=== PATIENT | female | born 1970 | race Caucasian/White ===

== ENCOUNTER → 2016-12-27 | Outpatient (CLI) | payer OTHER | LOC: US 14:50 | DX: R10.9 Unspecified abdominal pain (principal) ==

== ENCOUNTER 2017-04-28 10:30 | Emergency (ER) | payer MEDICARE ==
[2017-04-28 11:47] LABS: HEMOGLOBIN 17.1 gm/dl (12.3-15.3); RED BLOOD COUNT 5.12 M/UL (4.00-5.10); WHITE BLOOD COUNT 9.7 K/UL (4.5-11.0)
[2017-04-28 12:05] LABS: BUN/CREATININE RATIO 7 (0-10)
== END 2017-04-28 15:13 | disposition home or self-care (01) ==
LOC: ER1 10:30
PROVIDERS: Emergency Medicine
DX: R10.11 Right upper quadrant pain (principal); R19.7 Diarrhea, unspecified; R63.0 Anorexia; F17.210 Nicotine dependence, cigarettes, uncomplicated; Z90.49 Acquired absence of other specified parts of digestive tract
CPT/HCPCS: 36415; 80053; 81001; 83605; 83690; 84484; 84703; 85025; 85610; 85730; 93005; 96361; 96374; 96375; 99284; J2405; J7030; J7050; Q9962

== ENCOUNTER → 2021-01-31 | Outpatient (CLI) | payer OTHER ==
[~2021-01-31] MED LIST: BENTYL 10MG CAP10 MG PO; CELEBREX200 MG PO; COLACE100 MG PO; CYMBALTA60 MG PO; DITROPAN 5 MG TA5 MG PO; ECOTRIN81 MG PO; FLOMAX0.4 MG PO; HYDROCODON-ACE1 EAC6 PO; HYDROXYZINE PAM25 MG PO; KLONOPIN TAB 00.5 MG PO; KLONOPIN0.5 MG PO; LOPRESSOR 25 MG25 MG PO; MACROBID 100 M100 MG PO; METOPROLOL SUCC25 MG PO; NEURONTIN 400400 MG PO; NEURONTIN800 MG PO; NORCO 10-325 T1 EACH PO; OXYBUTYNIN CHLO15 MG PO; PEPCID20 MG PO; PERCOCET 5-3251 EACH PO; PLAVIX 75 MG TA75 MG PO; PLAVIX75 MG PO; PRAVACHOL40 MG PO; PROAIR HFA8.5 GM INH; PROTONIX 20 MG20 MG PO; RESTORIL30 MG PO; SYMBICORT 160-1 INHA INH; SYMBICORT 80-41 INHA INH; TEMAZEPAM30 MG PO; TORADOL 10 MG T10 MG PO; VENTOLIN HFA 66.7 GM INH; XYLOCAINE 5% OI35 GM TOP; ZOFRAN4 MG PO
== END ==
LOC: CT 07:11
DX: R10.13 Epigastric pain (principal); I10 Essential (primary) hypertension; R93.5 Abnormal findings on diagnostic imaging of other abdominal regions, including retroperitoneum
CPT/HCPCS: 36415; 74160; 82565; Q9967

== ENCOUNTER → 2021-02-17 | Outpatient (CLI) | payer OTHER | LOC: HEART 5 09:20 → ECHO 02-22 13:00 | DX: I25.10 Atherosclerotic heart disease of native coronary artery without angina pectoris (principal); I08.1 Rheumatic disorders of both mitral and tricuspid valves; I27.20 Pulmonary hypertension, unspecified; Z95.5 Presence of coronary angioplasty implant and graft | CPT/HCPCS: 93306 ==

== ENCOUNTER 2021-07-25 14:40 | Inpatient (IN) | payer OTHER ==
[~2021-07-25] VITALS: Ht 157.5 cm; Wt 68.6 kg
[2021-07-25 16:23] LABS: HEMOGLOBIN 15.3 gm/dl (12.3-15.3); RED BLOOD COUNT 4.62 M/UL (4.00-5.10); WHITE BLOOD COUNT 8.7 K/UL (4.5-11.0)
[2021-07-25 16:49] LABS: BUN/CREATININE RATIO 18 (0-10)
[2021-07-25] MEDS ORDERED: PROVENTIL HFA6.7 GM INH (22:24)
[2021-07-25] MEDS ORDERED: PEPCID40 MG PO (22:24)
[2021-07-25] MEDS ORDERED: PROTONIX40 MG PO (22:25)
[2021-07-25] MEDS ORDERED: HYDROCHLOROTHIA25 MG PO (22:26)
[2021-07-25] MEDS ORDERED: NURTEC ODT75 MG PO (22:26)
[2021-07-25] MEDS ORDERED: TIZANIDINE HCL4 MG PO (22:26)
[2021-07-25] MEDS ORDERED: EMGALITY S120 MG/1 M SQ (22:27)
[2021-07-26 13:00] LABS: BORDETELLA PARAPERTUSSIS Not Detected (Not Detectd); BORDETELLA PERTUSSIS Not Detected (Not Detectd); CHLAMYDIA PNEUMONIAE Not Detected (Not Detectd); CORONAVIRUS HKU1 Not Detected (Not Detectd); CORONAVIRUS NL63 Not Detected (Not Detectd); CORONOAVIRUS 229E Not Detected (Not Detectd); HUMAN METAPNEUMOVIRUS Not Detected (Not Detectd); HUMAN RHINOVIRUS/ENTEROVIRUS Not Detected (Not Detectd); INFLUENZA A Not Detected (Not Detectd); INFLUENZA B Not Detected (Not Detectd); MYCOPLASMA PNEUMONIAE Not Detected (Not Detectd); PARAINFLUENZA VIRUS 1 Not Detected (Not Detectd); PARAINFLUENZA VIRUS 2 Not Detected (Not Detectd); PARAINFLUENZA VIRUS 3 Not Detected (Not Detectd); PARAINFLUENZA VIRUS 4 Not Detected (Not Detectd); RESPIRATORY SYNCYTIAL VIRUS Not Detected (Not Detectd)
[2021-07-26 14:38] LABS: CORONAVIRUS OC43 DETECTED (Not Detectd); SARS-CoV-2 NOT DETECTED (Not Detectd)
[2021-07-28 06:09] LABS: HEMOGLOBIN 15.1 gm/dl (12.3-15.3); RED BLOOD COUNT 4.61 M/UL (4.00-5.10)
[2021-07-28 06:12] LABS: WHITE BLOOD COUNT 16.6 K/UL (4.5-11.0)
[2021-07-28 06:27] LABS: BUN/CREATININE RATIO 34 (0-10)
--- NOTE | 2021-07-28 10:04 | NUR ---
WALKED PT FOR 6 MINUTES ON RA PER GLENROY LEMON, PT STATS STAYED ABOVE 91%
[2021-07-28] MEDS ORDERED: BENZONATATE100 MG PO (12:15)
[2021-07-28] MEDS ORDERED: IPRAT-ALBUT 0.5-3 ML NEB (12:15)
[2021-07-28] MEDS ORDERED: MEDROL DOSEPAK 24 MG PO (12:15)
[2021-07-28] MEDS ORDERED: NICOTINE PATCH1 EAC1 TD (12:15)
== END 2021-07-28 14:33 | disposition home or self-care (01) | DRG 189 ==
LOC: ER1 14:40 → MED SURG 4 19:04 → CDU 19:04 → MED SURG 4 19:04
PROVIDERS: Family Medicine; Internal Medicine Infectious Disease; ADMIT Internal Medicine
DX: J96.01 Acute respiratory failure with hypoxia (principal); J44.1 Chronic obstructive pulmonary disease with (acute) exacerbation; I71.4 Abdominal aortic aneurysm, without rupture; K21.9 Gastro-esophageal reflux disease without esophagitis; Z20.822 Contact with and (suspected) exposure to COVID-19; F17.210 Nicotine dependence, cigarettes, uncomplicated; E78.5 Hyperlipidemia, unspecified; G47.00 Insomnia, unspecified; M54.50 Low back pain, unspecified; G89.29 Other chronic pain; I10 Essential (primary) hypertension; I25.10 Atherosclerotic heart disease of native coronary artery without angina pectoris; Z95.1 Presence of aortocoronary bypass graft; Z90.49 Acquired absence of other specified parts of digestive tract; Z98.51 Tubal ligation status; Z98.890 Other specified postprocedural states; Z88.8 Allergy status to other drugs, medicaments and biological substances; Z79.82 Long term (current) use of aspirin; Z79.899 Other long term (current) drug therapy; Z71.6 Tobacco abuse counseling; Z82.49 Family history of ischemic heart disease and other diseases of the circulatory system; Z79.52 Long term (current) use of systemic steroids
CPT/HCPCS: 0240U; 36415; 71045; 80048; 80053; 81001; 82550; 82553; 83605; 83880; 84484; 85025; 87040; 87070; 87205; 87633; 93005; 94640; 94664; 94760; 96374; 99285; 99406; G0378; J2920; J2930; Q9967

== ENCOUNTER → 2021-08-25 | Outpatient (CLI) | payer OTHER ==
[~2021-08-25] MED LIST changes: +BENZONATATE100 MG PO; +EMGALITY S120 MG/1 M SQ; +HYDROCHLOROTHIA25 MG PO; +IPRAT-ALBUT 0.5-3 ML NEB; +MEDROL DOSEPAK 24 MG PO; +NICOTINE PATCH1 EAC1 TD; +NURTEC ODT75 MG PO; +PEPCID40 MG PO; +PROTONIX40 MG PO; +PROVENTIL HFA6.7 GM INH; +TIZANIDINE HCL4 MG PO
== END ==
LOC: HEART 5 10:40
DX: R06.00 Dyspnea, unspecified (principal)
CPT/HCPCS: 94060; 94729

== ENCOUNTER 2021-10-31 13:25 | Emergency (ER) | payer MEDICARE, OTHER ==
[2021-10-31 16:35] LABS: HEMOGLOBIN 15.1 gm/dl (12.3-15.3); RED BLOOD COUNT 4.56 M/UL (4.00-5.10); WHITE BLOOD COUNT 17.1 K/UL (4.5-11.0)
[2021-10-31 17:20] LABS: BUN/CREATININE RATIO 17 (0-10)
[2021-10-31] MEDS ORDERED: MEDROL4 MG PO (18:05)
== END 2021-10-31 18:46 | disposition home or self-care (01) ==
LOC: ER1 13:25
PROVIDERS: Emergency Medicine
DX: M54.41 Lumbago with sciatica, right side (principal); J44.9 Chronic obstructive pulmonary disease, unspecified; G43.909 Migraine, unspecified, not intractable, without status migrainosus; F17.200 Nicotine dependence, unspecified, uncomplicated
CPT/HCPCS: 72132; 80053; 85025; 85652; 86140; 96374; 96375; 99284; J2270; J2405; Q9967

== ENCOUNTER → 2021-11-15 | Outpatient (CLI) | payer MEDICARE, OTHER ==
[~2021-11-15] MED LIST changes: +MEDROL4 MG PO
== END ==
LOC: EMI 08:00
DX: M54.16 Radiculopathy, lumbar region (principal); M48.061 Spinal stenosis, lumbar region without neurogenic claudication
CPT/HCPCS: 72148

== ENCOUNTER → 2022-01-03 | Outpatient (CLI) | payer MEDICARE, OTHER | LOC: KOH-I 14:22 | DX: M17.11 Unilateral primary osteoarthritis, right knee (principal) | CPT/HCPCS: 73562 ==